=== PATIENT | female | born 1985 | race American Indian/Alaskan Native ===

== ENCOUNTER 2022-03-14 16:10 | Emergency (ER) | payer OTHER, MEDICAID ==
[2022-03-14] MEDS ORDERED: ACETAMINOPHEN 500 MG TAB PO ONE (22:51)
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
[2022-03-15 03:57] VITALS: BP 122/87
== END 2022-03-15 03:57 | disposition home or self-care (01) ==
LOC: ED 16:10
DX: O9A.211 Injury, poisoning and certain other consequences of external causes complicating pregnancy, first trimester (principal); S39.011A Strain of muscle, fascia and tendon of abdomen, initial encounter; M62.830 Muscle spasm of back; V89.2XXA Person injured in unspecified motor-vehicle accident, traffic, initial encounter; Y93.89 Activity, other specified; Y92.89 Other specified places as the place of occurrence of the external cause; Y99.8 Other external cause status; Z3A.10 10 weeks gestation of pregnancy
CPT/HCPCS: 76801; 99283